=== PATIENT | female | born 1990 | race Caucasian/White ===

== ENCOUNTER 2017-05-31 15:05 | Emergency (ER) | payer SELFPAY ==
--- NOTE | 2017-05-31 16:05 | EDM.PDOC ---
ED HPI GENERAL MEDICAL PROBLEM - General Chief Complaint: Back Pain or Injury Stated Complaint: back pain Time Seen by Provider: 05/31/17 15:50 Source of Information: Reports: Patient History Limitations: Reports: No Limitations - History of Present Illness INITIAL COMMENTS - FREE TEXT/NARRATIVE: HISTORY AND PHYSICAL: History of present illness: [Comes to the emergency room complaining of mid to low back pain since she strained her back in February 2017. She has had ongoing pain since that time. She has followed with a provider in [place] a couple of times but overall has been dissatisfied with that care and presents to the emergency room for a second opinion. She was last seen in [place] yesterday. Requests an MRI to determine what is actually going on inside her back. She's had no worse pain and no change in the location of her pain. She has discomfort in her mid to low back with radiation into her left hip and down her left leg. Again this is not different than any of her previous symptoms. 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 Her pain started when she injured herself while lifting lifting while at work in February.] Review of systems: As per history of present illness and below otherwise all systems reviewed and negative. Past medical history: As per history of present illness and as reviewed below otherwise noncontributory. Surgical history: As per history of present illness and as reviewed below otherwise noncontributory. Social history: No reported history of drug or alcohol abuse. Family history: As per history of present illness and as reviewed below otherwise noncontributory. Physical exam: HEENT: Atraumatic, normocephalic. Extremities: Normal in appearance. No deficits appreciated w/ ambulation. Neuro: Awake, alert, oriented. Motor and sensory unremarkable throughout. Exam nonfocal. Impression: [back pain] Plan: [Discussed with the patient that emergent MRIs are not able to be completed through this emergency department and that her best bet is to establish care with a local PCP who can order an outpatient MRI at this facility. She is in agreement with today's plan and is given a referral to local PCP. She verbalized understanding of today's discussion and is in agreement with today's plan.] Definitive disposition and diagnosis as appropriate pending reevaluation and review of above. 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: Musculoskeletal History: Reports: None Neurological History: Reports: None Psychiatric History: Reports: Anxiety, Depression, PTSD, Other (See Below) Other Psychiatric History: borderline personality disorder Endocrine/Metabolic History: Reports: None Hematologic History: Reports: None Immunologic History: Reports: None Oncologic (Cancer) History: Reports: None Dermatologic History: Reports: None - Infectious Disease History Infectious Disease History: Reports: Chicken Pox, Shingles - Past Surgical History Head Surgeries/Procedures: Reports: None Musculoskeletal Surgical History: Reports: Other (See Below) Other Musculoskeletal Surgeries/Procedures:: tailbone fx Social & Family History - Family History Family Medical History: Noncontributory - Tobacco Use Smoking Status *Q: Current Every Day Smoker Years of Tobacco use: 5 Packs/Tins Daily: 1 - Caffeine Use Caffeine Use: Reports: Soda - Recreational Drug Use Recreational Drug Use: No ED ROS GENERAL - Review of Systems Review Of Systems: ROS reveals no pertinent complaints other than HPI. ED EXAM,LOWER BACK PAIN/INJURY - Physical Exam Exam: See Below Course - Vital Signs Last Recorded V/S: Last Vital Signs Temp 97.1 F 05/31/17 15:05 Pulse 123 H 05/31/17 15:05 Resp 18 05/31/17 15:05 BP 138/82 05/31/17 15:05 Pulse Ox 100 05/31/17 15:05 Departure - Departure Time of Disposition: 16:05 Disposition: Home, Self-Care 01 Condition: Good Clinical Impression: Low back pain - Discharge Information Referrals: PCP,None [Primary Care Provider] - Forms: ED Department Discharge Additional Instructions: The following information is given to patients seen in the emergency department who are being discharged to home. This information is to outline your options for follow-up care. We provide all patients seen in our emergency department with a follow-up referral. The need for follow-up, as well as the timing and circumstances, are variable depending upon the specifics of your emergency department visit. If you don't have a primary care physician on staff, we will provide you with a referral. We always advise you to contact your personal physician following an emergency department visit to inform them of the circumstance of the visit and for follow-up with them and/or the need for any referrals to a consulting specialist. The emergency department will also refer you to a specialist when appropriate. This referral assures that you have the opportunity for follow-up care with a specialist. All of these measure are taken in an effort to provide you with optimal care, which includes your follow-up. Under all circumstances we always encourage you to contact your private physician who remains a resource for coordinating your care. When calling for follow-up care, please make the office aware that this follow-up is from your recent emergency room visit. If for any reason you are refused follow-up, please contact the [facility] emergency department at and asked to speak to the emergency department charge nurse. [facility] [address] [place] [id number] Call the above listed phone number and get scheduled with a provider who can see you in the next couple of days. Some of the residents have same-day appointments and will provide you with excellent medical care. Return to ER as needed as discussed.
[2017-05-31 16:41] VITALS: BP 115/61
== END 2017-05-31 16:39 | disposition home or self-care (01) ==
LOC: MW.ED 15:05
DX: M54.5 Low back pain (principal); F17.210 Nicotine dependence, cigarettes, uncomplicated; Z88.5 Allergy status to narcotic agent
CPT/HCPCS: 99282

== ENCOUNTER 2017-08-18 16:30 | Emergency (ER) | payer SELFPAY ==
--- NOTE | 2017-08-18 16:49 | EDM.PDOC ---
ED HPI GENERAL MEDICAL PROBLEM - General Chief Complaint: ENT Problem Stated Complaint: TONSILS PAIN Time Seen by Provider: 08/18/17 16:30 Source of Information: Reports: Patient History Limitations: Reports: No Limitations - History of Present Illness INITIAL COMMENTS - FREE TEXT/NARRATIVE: HISTORY AND PHYSICAL: History of present illness: Patient is a 26-year-old female who presents to the emergency room with complaints of cough, sore throat and subjective fevers. She states she has had some intermittent nausea and diarrhea for the past 2 days as well. Denies any chest pain, shortness of breath, abdominal pain, vomiting. Has not had the flu shot this year. Review of systems: As per history of present illness and below otherwise all systems reviewed and negative. Past medical history: As per history of present illness and as reviewed below otherwise noncontributory. Surgical history: As per history of present illness and as reviewed below otherwise noncontributory. Social history: No reported history of drug or alcohol abuse. Family history: As per history of present illness and as reviewed below otherwise noncontributory. Physical exam: Gen.: Well-developed and well-nourished 26-year-old female. Alert and oriented. Nontoxic appearing and in no acute distress. HEENT: Atraumatic, normocephalic, pupils reactive, negative for conjunctival pallor or scleral icterus, mucous membranes moist, enlarged tonsils with no pillar shifting (mild errythema without exudate) otherwise throat clear, neck supple, nontender, trachea midline. No drooling or trismus. Lungs: Clear to auscultation, breath sounds equal bilaterally, chest nontender. Heart: S1S2, regular rate and rhythm Abdomen: Soft, nondistended, nontender. Negative for masses or hepatosplenomegaly. Negative for costovertebral tenderness. Pelvis: Stable nontender. Genitourinary: Deferred. Rectal: Deferred. Extremities: Atraumatic, negative for cords or calf pain. Neurovascular unremarkable. Neuro: Awake, alert, oriented. Cranial nerves II through XII unremarkable. Cerebellum unremarkable. Motor and sensory unremarkable throughout. Exam nonfocal. Initial strep screening is negative. Influenza is negative. Diagnostics: Influenza, strep, chest x-ray Therapeutics: [] Impression: Bronchitis Tonsilitis Plan: 1. Please take your antibiotic and Medrol Dosepak as prescribed. 2. Tylenol and/or ibuprofen as needed for pain and fever management. Please get an [id number] Cepocol or Throat Lozenges for discomfort relief. Encourage fluids to prevent dehydration. Rest. 3. Follow up with her primary caregiver in the next 1-2 days. Return to the ED as needed and as discussed. Definitive disposition and diagnosis as appropriate pending reevaluation and review of above. Duration: Day(s): Location: Reports: Head, Chest Throat Pain Score (Numeric/FACES): 8 - Related Data Allergies Allergy/AdvReac Type Severity Reaction Status Date / Time codeine Allergy Hives Verified 08/18/17 16:46 Home Meds: Home Meds Azithromycin 250 mg PO DAILY #6 tab 08/18/17 [Rx] methylPREDNISolone [Medrol] 4 mg PO DAILY #1 dospk 08/18/17 [Rx] Past Medical History - Past Health History Medical/Surgical History: Denies Medical/Surgical History HEENT History: Reports: None Cardiovascular History: Reports: None Respiratory History: Reports: Asthma Gastrointestinal History: Reports: None Genitourinary History: Reports: 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: Musculoskeletal History: Reports: None Neurological History: Reports: None Psychiatric History: Reports: Anxiety, Depression, PTSD, Other (See Below) Other Psychiatric History: borderline personality disorder Endocrine/Metabolic History: Reports: None Hematologic History: Reports: None Immunologic History: Reports: None Oncologic (Cancer) History: Reports: None Dermatologic History: Reports: None - Infectious Disease History Infectious Disease History: Reports: Chicken Pox, Shingles - Past Surgical History Head Surgeries/Procedures: Reports: None Musculoskeletal Surgical History: Reports: Other (See Below) Other Musculoskeletal Surgeries/Procedures:: tailbone fx Social & Family History - Family History Family Medical History: Noncontributory - Tobacco Use Smoking Status *Q: Current Every Day Smoker Years of Tobacco use: 5 Packs/Tins Daily: 1 - Caffeine Use Caffeine Use: Reports: Soda - Recreational Drug Use Recreational Drug Use: No ED ROS ENT - Review of Systems Review Of Systems: ROS reveals no pertinent complaints other than HPI. ED EXAM, ENT - Physical Exam Exam: See Below (See dictation) Course - Vital Signs Last Recorded V/S: Last Vital Signs Temp 98.9 F 08/18/17 16:47 Pulse 86 08/18/17 18:15 Resp 18 08/18/17 18:15 BP 116/75 08/18/17 18:15 Pulse Ox 96 08/18/17 18:15 Departure - Departure Time of Disposition: 18:08 Disposition: Home, Self-Care 01 Clinical Impression: Tonsillitis, Bronchitis - Discharge Information Prescriptions: Azithromycin 250 mg PO DAILY #6 tab methylPREDNISolone [Medrol] 4 mg PO DAILY #1 dospk Instructions: Tonsillitis, [id number], Acute Bronchitis, Adult, [id number] Referrals: Shlomo Flynn MD [Resident] - Forms: ED Department Discharge Additional Instructions: My general discharge The following information is given to patients seen in the emergency department who are being discharged to home. This information is to outline your options for follow-up care. We provide all patients seen in our emergency department with a follow-up referral. The need for follow-up, as well as the timing and circumstances, are variable depending upon the specifics of your emergency department visit. If you don't have a primary care physician on staff, we will provide you with a referral. We always advise you to contact your personal physician following an emergency department visit to inform them of the circumstance of the visit and for follow-up with them and/or the need for any referrals to a consulting specialist. The emergency department will also refer you to a specialist when appropriate. This referral assures that you have the opportunity for follow-up care with a specialist. All of these measure are taken in an effort to provide you with optimal care, which includes your follow-up. Under all circumstances we always encourage you to contact your private physician who remains a resource for coordinating your care. When calling for follow-up care, please make the office aware that this follow-up is from your recent emergency room visit. If for any reason you are refused follow-up, please contact the [facility] Emergency Department at and asked to speak to the emergency department charge nurse. [facility] [address] [place] [phone] 1. Please take your antibiotic and Medrol Dosepak as prescribed. 2. Tylenol and/or ibuprofen as needed for pain and fever management. Please get an [id number] Cepocol or Throat Lozenges for discomfort relief. Encourage fluids to prevent dehydration. Rest. 3. Follow up with her primary caregiver in the next 1-2 days. Return to the ED as needed and as discussed.
[2017-08-18 18:20] VITALS: BP 116/75
--- NOTE | 2017-08-19 10:14 | CR ---
EXAM DATE: 08/18/17 PATIENT'S AGE: 26 Patient: BASIM PARRY Facility: [place], [place] Site . Site : 1990 Study: XRay Chest [id number] 5:31:19 PM Ordering Physician: Doctor Wu Final Report: Indication: Pain, shortness of breath Technique: Two-view chest Comparison: None Findings: Normal cardiomediastinal silhouette. Clear lungs and pleural spaces. Osseous structures intact. Impression: Negative. Dictated by Jes Shields MD @ Aug 18 2017 6:13PM (Electronic Signature) Report Signed by Proxy. YAZMIN
== END 2017-08-18 18:15 | disposition home or self-care (01) ==
LOC: MW.ED 16:30
DX: J40 Bronchitis, not specified as acute or chronic (principal); J03.90 Acute tonsillitis, unspecified; F17.210 Nicotine dependence, cigarettes, uncomplicated; Z88.5 Allergy status to narcotic agent
CPT/HCPCS: 71046; 71046-26; 87081; 87804; 87880; 99283

== ENCOUNTER 2018-09-06 03:17 | Emergency (ER) | payer OTHER ==
[2018-09-06] MEDS ORDERED: Sodium Chloride 0.9% 2.5 ML Syringe FLUSH PRN (03:37)
[2018-09-06] MEDS ORDERED: Sodium Chloride 0.9% 10 ML Syringe FLUSH PRN (03:37)
--- NOTE | 2018-09-06 03:40 | EDM.PDOC ---
ED HPI GENERAL MEDICAL PROBLEM - General Chief Complaint: Syncope Stated Complaint: TROUBLE BREATHING Time Seen by Provider: 09/06/18 03:37 - History of Present Illness INITIAL COMMENTS - FREE TEXT/NARRATIVE: HISTORY AND PHYSICAL: History of present illness: Patient's 27-year-old white female history of anxiety presents status post syncopal episode she reportedly hit her head during this episode there was no nausea vomiting no fever no chills. Review of systems: As per history of present illness and below otherwise all systems reviewed and negative. Past medical history: As per history of present illness and as reviewed below otherwise noncontributory. Surgical history: As per history of present illness and as reviewed below otherwise noncontributory. Social history: No reported history of drug or alcohol abuse. Family history: As per history of present illness and as reviewed below otherwise noncontributory. Physical exam: HEENT: Minor abrasion noted the chin, normocephalic, pupils reactive, negative for conjunctival pallor or scleral icterus, mucous membranes moist, throat clear , neck supple, nontender, trachea midline. Lungs: Clear to auscultation, breath sounds equal bilaterally, chest nontender. Heart: S1S2, regular, negative for clicks, rubs, or JVD. Abdomen: Soft, nondistended, nontender. Negative for masses or hepatosplenomegaly. Negative for costovertebral tenderness. Pelvis: Stable nontender. Genitourinary: Deferred. Rectal: Deferred. Extremities: Atraumatic, negative for cords or calf pain. Neurovascular unremarkable. Neuro: Awake follows commands moves all extremities noted grossly nonfocal exam Diagnostics: CBC CMP troponin PT/INR chest x-ray CT brain Therapeutics: IV O2 monitor Impression: #1 syncope #2 history of anxiety Definitive disposition and diagnosis as appropriate pending reevaluation and review of above. headache Pain Score (Numeric/FACES): 8 - Related Data Allergies Allergy/AdvReac Type Severity Reaction Status Date / Time codeine Allergy Hives Verified 09/06/18 03:35 Home Meds: Home Meds . 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: Musculoskeletal History: Reports: None Neurological History: Reports: None Psychiatric History: Reports: Anxiety, Depression, PTSD, Other (See Below) Other Psychiatric History: borderline personality disorder Endocrine/Metabolic History: Reports: None Hematologic History: Reports: None Immunologic History: Reports: None Oncologic (Cancer) History: Reports: None Dermatologic History: Reports: None - Infectious Disease History Infectious Disease History: Reports: Chicken Pox, Shingles - Past Surgical History Head Surgeries/Procedures: Reports: None Musculoskeletal Surgical History: Reports: Other (See Below) Other Musculoskeletal Surgeries/Procedures:: tailbone fx Social & Family History - Family History Family Medical History: Noncontributory - Caffeine Use Caffeine Use: Reports: Soda ED ROS GENERAL - Review of Systems Review Of Systems: ROS reveals no pertinent complaints other than HPI. ED EXAM, GENERAL - Physical Exam Exam: See Below (See dictation) Course - Vital Signs Last Recorded V/S: Last Vital Signs Temp 36.7 C 09/06/18 05:03 Pulse 81 09/06/18 05:03 Resp 20 09/06/18 05:03 BP 110/64 09/06/18 05:03 Pulse Ox 93 L 09/06/18 05:03 - Orders/Labs/Meds Orders: Active Orders 24 hr Category Date Time Status Cardiac Monitoring [RC] . DIRECTED Care 09/06/18 03:37 Active EKG 12 Lead [EKG Documentation Completion] [RC] STAT Care 09/06/18 03:29 Active Saline Lock Insert [OM.PC] Stat Oth 09/06/18 03:37 Ordered Labs: Laboratory Tests 09/06/18 09/06/18 09/06/18 Range/Units 03:45 03:45 03:45 WBC 10.34 (4.0-11.0) K/uL RBC 4.56 (4.30-5.90) M/uL Hgb 14.1 (12.0-16.0) g/dL Hct 39.6 (36.0-46.0) % MCV 86.8 (80.0-98.0) fL MCH 30.9 (27.0-32.0) pg MCHC 35.6 (31.0-37.0) g/dL RDW Std Deviation 39.2 (28.0-62.0) fl RDW Coeff of Delfino 12 (11.0-15.0) % Plt Count 259 (150-400) K/uL MPV 9.40 (7.40-12.00) fL Neut % (Auto) 75.4 (48.0-80.0) % Lymph % (Auto) 16.1 (16.0-40.0) % Hancock % (Auto) 7.7 (0.0-15.0) % Eos % (Auto) 0.5 (0.0-7.0) % Baso % (Auto) 0.3 (0.0-1.5) % Neut # (Auto) 7.8 H (1.4-5.7) K/uL Lymph # (Auto) 1.7 (0.6-2.4) K/uL Hancock # (Auto) 0.8 (0.0-0.8) K/uL Eos # (Auto) 0.1 (0.0-0.7) K/uL Baso # (Auto) 0.0 (0.0-0.1) K/uL Nucleated RBC % 0.0 /100WBC Nucleated RBCs # 0 K/uL INR 1.05 Sodium 141 (136-145) mmol/L Potassium 3.7 (3.5-5.1) mmol/L Chloride 105 (98-107) mmol/L Carbon Dioxide 23.5 (21.0-32.0) mmol/L BUN 9 (7.0-18.0) mg/dL Creatinine 0.8 (0.6-1.0) mg/dL Est Cr Clr Drug Dosing TNP Estimated GFR (MDRD) > 60.0 ml/min Glucose 120 H (74-106) mg/dL Calcium 8.6 (8.5-10.1) mg/dL Total Bilirubin 0.8 (0.2-1.0) mg/dL AST 12 L (15-37) IU/L ALT 23 (14-63) IU/L Alkaline Phosphatase 63 (46-116) U/L Troponin I < 0.050 (0.000-0.056) ng/mL Total Protein 7.6 (6.4-8.2) g/dL Albumin 4.0 (3.4-5.0) g/dL Globulin 3.6 (2.6-4.0) g/dL Albumin/Globulin Ratio 1.1 (0.9-1.6) Meds: Medications Discontinued Medications Generic Name Dose Route Start Last Admin Trade Name Manju PRN Reason Stop Dose Admin Sodium Chloride 10 ml 09/06/18 03:37 Saline Flush FLUSH ASDIRECTED PRN Keep Vein Open Sodium Chloride 2.5 ml 09/06/18 03:37 Saline Flush FLUSH ASDIRECTED PRN Keep Vein Open Departure - Departure Time of Disposition: 05:57 Disposition: Home, Self-Care 01 Condition: Good Clinical Impression: Syncope, Anxiety - Discharge Information Instructions: Syncope, [id number] Referrals: PCP,None [Primary Care Provider] - Forms: ED Department Discharge Additional Instructions: The following information is given to patients seen in the emergency department who are being discharged to home. This information is to outline your options for follow-up care. We provide all patients seen in our emergency department with a follow-up referral. The need for follow-up, as well as the timing and circumstances, are variable depending upon the specifics of your emergency department visit. If you don't have a primary care physician on staff, we will provide you with a referral. We always advise you to contact your personal physician following an emergency department visit to inform them of the circumstance of the visit and for follow-up with them and/or the need for any referrals to a consulting specialist. The emergency department will also refer you to a specialist when appropriate. This referral assures that you have the opportunity for followup care with a specialist. All of these measure are taken in an effort to provide you with optimal care, which includes your followup. Under all circumstances we always encourage you to contact your private physician who remains a resource for coordinating your care. When calling for followup care, please make the office aware that this follow-up is from your recent emergency room visit. If for any reason you are refused follow-up, please contact the [facility] emergency department at and asked to speak to the emergency department charge nurse. Follow-up primary medical doctor as needed as discussed return as needed as discussed - My Orders Last 24 Hours: My Active Orders 09/06/18 03:29 EKG 12 Lead [EKG Documentation Completion] [RC] STAT 09/06/18 03:37 Cardiac Monitoring [RC] . DIRECTED Saline Lock Insert [OM.PC] Stat - Assessment/Plan Last 24 Hours: My Active Orders 09/06/18 03:29 EKG 12 Lead [EKG Documentation Completion] [RC] STAT 09/06/18 03:37 Cardiac Monitoring [RC] . DIRECTED Saline Lock Insert [OM.PC] Stat
--- NOTE | 2018-09-06 04:08 | CR ---
INDICATION: Chest pain TECHNIQUE: Chest radiograph 1 view COMPARISON: None FINDINGS: Mediastinum: The mediastinum is normal in appearance. The heart silhouette is normal in size and morphology. Lung: Both lungs are unremarkable in appearance. No sign of pleural effusion seen. No pneumothorax is identified. Musculoskeletal: Unremarkable for age. IMPRESSION: 1. No acute cardiopulmonary disease is seen. Dictated by: Juan José Frank MD @ 09/06/2018 04:07:09 (Electronically Signed)
[2018-09-06 04:18] LABS: CHLORIDE,CL 105 mmol/L (98-107); SODIUM,NA 141 mmol/L (136-145)
--- NOTE | 2018-09-06 04:21 | CT ---
INDICATION: Syncope TECHNIQUE: CT Head without i.v. contrast. COMPARISON: None FINDINGS: CSF space: The ventricles are normal for age. Brain: No evidence of mass, acute infarction or hemorrhage is seen. No mass-effect or midline shift is seen. The brain parenchyma is otherwise normal in appearance with preservation of the mcfadden-white matter junction. Calvarium: The visualized paranasal sinuses are well aerated. The mastoid air cells are clear. The visualized orbits are grossly unremarkable. The calvarium is unremarkable in appearance with no fractures identified. IMPRESSION: 1. No evidence of acute infarction, intracranial hemorrhage, or mass-effect seen. Please note that all CT scans at this facility use dose modulation, iterative reconstruction, and/or weight-based dosing when appropriate to reduce radiation dose to as low as reasonably achievable. Dictated by: Juan José Frank MD @ 09/06/2018 04:19:48 (Electronically Signed)
[2018-09-06 05:38] VITALS: BP 110/64
== END 2018-09-06 05:22 | disposition home or self-care (01) ==
LOC: MW.ED 03:17
DX: R55 Syncope and collapse (principal); F41.9 Anxiety disorder, unspecified; Z88.5 Allergy status to narcotic agent
CPT/HCPCS: 36415; 70450; 70450-26; 71045; 71045-26; 80053; 84484; 85025; 85610; 93005; 99284; 99284-25

== ENCOUNTER 2021-01-29 18:32 | Emergency (ER) | payer OTHER ==
[2021-01-29] MEDS ORDERED: Sodium Chloride 0.9% 1,000 ML IV ONE (19:31)
[2021-01-29] MEDS ORDERED: Ondansetron 4 MG/2 ML SDV IVPUSH ONE ×2 (19:31→21:41)
[2021-01-29] MEDS ORDERED: HYDROmorphone 1 MG/ML Syringe IVPUSH ONE ×2 (19:31→21:41)
[2021-01-29 20:18] LABS: BLOOD UREA NITROGEN,BUN 9 mg/dL (7.0-18.0); CARBON DIOXIDE,CO2 27.3 mmol/L (21.0-32.0); CHLORIDE,CL 103 mmol/L (98-107); GLUCOSE RANDOM 97 mg/dL (74-106); LIPASE 66 U/L (73-393); POTASSIUM,K 3.5 mmol/L (3.5-5.1); SODIUM,NA 140 mmol/L (136-145)
[2021-01-29] MEDS ORDERED: Calcium Gluconate 10% 1 GM/10 ML SDV IVPUSH ONE (20:48)
--- NOTE | 2021-01-29 21:24 | US ---
INDICATION: Right upper quadrant abdominal pain TECHNIQUE: Ultrasound abdomen limited. Sonographic images of the right upper quadrant were obtained using mcfadden-scale and color Doppler images. COMPARISON: None FINDINGS: Liver: The liver parenchyma is normal in echotexture. Gallbladder: No gallstones or sludge seen in the lumen. The gallbladder wall is normal in appearance. No pericholecystic fluid is present. No sonographic Allen[place] sign is present. Common bile duct: 2 mm. No intrahepatic biliary ductal dilatation seen. Pancreas: The visualized portions of the pancreatic head and body are normal in appearance. Right Kidney: 10.2 cm. No hydronephrosis or ureterectasis is seen. Vascular: The visualized abdominal aorta and IVC are unremarkable. IMPRESSION: 1. The right upper quadrant is unremarkable in appearance. Dictated by Juan José Frank MD @ 01/29/2021 9:22:18 PM Dictated by: Juan José Frank MD @ 01/29/2021 21:22:47 (Electronically Signed)
--- NOTE | 2021-01-29 21:30 | US ---
PELVIC ULTRASOUND, 01/29/2021 HISTORY: Right lower quadrant abdominal pain. COMPARISON: None. FINDINGS: The uterus measures 7.5 x 3.5 x 3.2 cm. No evidence for uterine mass. The endometrium is homogeneous measuring 3 mm in thickness. The right ovary measures 3.5 x 3.3 x 1.7 cm. The left ovary measures 2.3 x 1.4 x 2.6 cm. Normal Doppler blood flow to both ovaries. Normal ovarian follicles. No evidence for ovarian or adnexal mass. No free pelvic fluid. IMPRESSION: Normal pelvic ultrasound. Kathryn Rain M.D. Breast/Body Radiologist [facility] Transcribed: 9:24 p.m. [email or web address] jj/Dictated by: Kathryn Rain MD @ 01/29/2021 9:20:00 PM (Electronically Signed)
--- NOTE | 2021-01-29 22:25 | EDM.PDOC ---
ED HPI GENERAL MEDICAL PROBLEM - General Chief Complaint: ARMED SECURITY GUARD Problem Stated Complaint: REF FROM [facility] FOR US Time Seen by Provider: 01/29/21 18:44 Source of Information: Reports: Patient History Limitations: Reports: No Limitations - History of Present Illness INITIAL COMMENTS - FREE TEXT/NARRATIVE: HISTORY AND PHYSICAL: History of present illness: Patient is a 30-year-old female presents emergency room today as she was sent from [facility] to receive ultrasound for possible "ovarian torsion ". Patient states that she started developing right-sided abdominal pain today and went to [facility]'s emergency room. Patient states that she had lab work and a CT scan done there and was told everything was normal and was instructed to come to [place] in order to get an ultrasound to rule out possible ovarian torsion. Patient states that she did have a similar episode to this approximately 1 year ago which resolved and was unknown as to what the s ource was. Patient states that today, her pain is worse than it was a year ago but states that the pain does have a similar "feeling ". Patient denies any health history or any other symptoms or concerns. Patient denies fever, chills, chest pain, shortness of breath, or cough. Denies headache, neck stiff ness, change in vision, syncope, or near syncope. Denies diarrhea, constipation, or dysuria. Has not noted any blood in urine or stool. Review of systems: As per history of present illness and below otherwise all systems reviewed and negative. Past medical history: As per history of present illness and as reviewed below otherwise noncontributory. Surgical history: As per history of present illness and as reviewed below otherwise noncontributory. Social history: See social history for further information Family history: As per history of present illness and as reviewed below otherwise noncontributory. Physical exam: General: Patient is alert, oriented, and in no acute distress. Patient sitting comfortably on exam table. Vitals stable and reviewed by me. HEENT: Atraumatic, normocephalic, pupils equal and reactive bilaterally, negative for conjunctival pallor or scleral icterus, mucous membranes moist, TMs normal bilaterally, throat clear, neck supple, nontender, trachea midline. No drooling or trismus noted. No meningeal signs. No hot potato voice noted. Lungs: Clear to auscultation, breath sounds equal bilaterally, chest nontender. Heart: S1S2, regular rate and rhythm without overt murmur Abdomen: Soft, nondistended, patient does have significant right-sided abdominal pain, worse in the upper abdomen than lower abdomen with guarding, negative rebound, negative Baum. Negative for masses or hepatosplenomegaly. Negative for costovertebral tenderness. Pelvis: Stable nontender. Genitourinary: Stockroom Associate at bedside Zahida Burkett RN. External genitalia grossly unremarkable. There is a small amount of white vaginal discharge in the vaginal vault. Negative cervical motion tenderness. Uterus is nontender. No adnexal tenderness or masses. Rectal: Deferred. Skin: Intact, warm, dry. No lesions or rashes noted. Extremities: Atraumatic, negative for cords or calf pain. Neurovascular unremarkable. Neuro: Awake, alert, oriented. Cranial nerves II through XII unremarkable. Cerebellum unremarkable. Motor and sensory unremarkable throughout. Exam nonfoca l. Notes: Patient is a 30-year-old female who presents emergency room today from [facility] as they recommended ultrasound to rule out possible ovarian torsion. Patient presents emergency room today secondary to right-sided abdominal pain. Upon arrival to the ED, patient is vitally stable but does have significant tenderness to the right sided abdomen on exam. Patient does have lab work and an abdominal pelvic CT scan from [facility] with lab work/CD of CT scan, and interpretation of CT scan faxed over from [facility]. Upon review of patient's lab work and CT scan performed at [facility]. CT scan was performed today 01/29/2021 at [address] scan without contrast shows there are no acute abnormalities within the visualized abdomen or pelvis. The appendix is seen and is normal. Lab work done at [facility] shows an unremarkable CBC, mild elevated bili in isolation at 1.35 otherwise unremarkable CMP, negative Covid, clear urinalysis. [facility] was concerned about possible ovarian torsion. On exam, patient does have significant right sided tenderness. Will repeat lab work to compare to labs done earlier today as well as obtain ultrasound of the right upper quadrant and transvaginal ultrasound/rule out ovarian torsion. Patient has received a full dose of Toradol while at [facility]. Will give patient Dilaudid, fluids, Zofran, and reassess patient. CBC mild derangements today are unremarkable. CMP shows a corrected calcium is decreased at 7.4. Will replete calcium today in the emergency room. Total bilirubin is mildly elevated in isolation at 1.3 with normal AST, ALT, and alk phos. hCG is negative. Lipase is within normal limits. Transvaginal ultrasound shows normal pelvic ultrasound with normal ovarian flow to both ovaries. Right upper quadrant ultrasound is unremarkable in appearance. There are no gallstones or sludge seen in the gallbladder. The gallbladder wall is normal. No pericholecystic fluid present. Common bile duct within normal limits at 2 mm with no intrahepatic biliary ductal dilation. Upon reevaluation of patient, she remains vitally stable and has improvement of her abdominal pain with medication/therapeutics today in the emergency room. Patient does have 1 episode of vomiting while awaiting diagnostic completion but does not continue to actively vomit. Although patient's pain is improved, she still has significant abdominal pain. I did offer patient admission for intractable abdominal pain, however, she declines at this time. All risks versus benefits discussed with patient and expresses understanding. Strict return precautions thoroughly discussed with patient. Discussed importance for follow-up with a primary care provider. Voices understanding and is agreeable to plan of care. Denies any further questions or concerns at this time. Diagnostics: CBC, CMP, hCG, lipase, right upper quadrant ultrasound, transvaginal ultrasound Therapeutics: Calcium, Dilaudid, Zofran, normal saline (Patient did receive full dose Toradol in [place] prior to arrival to ED) Prescription: Comfort 5/325 (10 tabs), Zofran Impression: Abdominal pain, unspecified Plan: 1. Take medication as prescribed. Encourage small but frequent sips of fluid to prevent dehydration. 2. You can also alternate ibuprofen and Tylenol as directed for pain and discomfort. Caution when taking Comfort as this medication causes drowsiness and sedation. Do not take this medication and operate any heavy equipment or drive any vehicles. Caution taking this medication outside of the home. 3. Follow-up with your primary care provider as discussed. Return to the ED as needed and as discussed. Definitive disposition and diagnosis as appropriate pending reevaluation and review of above. RLQ Pain Score (Numeric/FACES): 7 - Related Data Allergies Allergy/AdvReac Type Severity Reaction Status Date / Time codeine Allergy Hives Verified 01/29/21 19:06 Home Meds: Home Meds . [No Known Home Meds] 09/06/18 [History] Past Medical History - Past Health History Medical/Surgical History: Denies Medical/Surgical History HEENT History: Reports: None Cardiovascular History: Reports: None Respiratory History: Reports: Asthma Gastrointestinal History: Reports: None Genitourinary History: Reports: None ARMED SECURITY GUARD History: Reports: Musculoskeletal History: Reports: None Neurological History: Reports: None Psychiatric History: Reports: Anxiety, Depression, PTSD, Other (See Below) Other Psychiatric History: borderline personality disorder Endocrine/Metabolic History: Reports: None Hematologic History: Reports: None Immunologic History: Reports: None Oncologic (Cancer) History: Reports: None Dermatologic History: Reports: None - Infectious Disease History Infectious Disease History: Reports: Chicken Pox, Shingles - Past Surgical History Head Surgeries/Procedures: Reports: None Musculoskeletal Surgical History: Reports: Other (See Below) Other Musculoskeletal Surgeries/Procedures:: tailbone fx Social & Family History - Family History Family Medical History: No Pertinent Family History - Tobacco Use Tobacco Use Status *Q: Current Every Day Tobacco User Years of Tobacco use: 17 Packs/Tins Daily: 0.5 - Caffeine Use Caffeine Use: Reports: Soda - Recreational Drug Use Recreational Drug Use: Yes Recreational Drug Type: Reports: Marijuana/Hashish ED ROS GENERAL - Review of Systems Review Of Systems: Comprehensive ROS is negative, except as noted in HPI. ED EXAM, GENERAL - Physical Exam Exam: See Below (see dictation) Course - Vital Signs Last Recorded V/S: Last Vital Signs Temp 97.1 F 01/29/21 22:45 Pulse 98 01/29/21 22:45 Resp 20 01/29/21 22:45 BP 116/70 01/29/21 22:45 Pulse Ox 100 01/29/21 22:45 - Orders/Labs/Meds Labs: Laboratory Tests 01/29/21 01/29/21 01/29/21 Range/Units 19:42 19:42 19:42 WBC 6.36 (4.0-11.0) K/uL RBC 4.62 (4.30-5.90) M/uL Hgb 14.5 (12.0-16.0) g/dL Hct 40.5 (36.0-46.0) % MCV 87.7 (80.0-98.0) fL MCH 31.4 (27.0-32.0) pg MCHC 35.8 (31.0-37.0) g/dL RDW Std Deviation 40.1 (28.0-62.0) fl RDW Coeff of Delfino 12 (11.0-15.0) % Plt Count 278 (150-400) K/uL MPV 9.30 (7.40-12.00) fL Neut % (Auto) 48.8 (48.0-80.0) % Lymph % (Auto) 41.0 H (16.0-40.0) % [place] % (Auto) 7.9 (0.0-15.0) % Eos % (Auto) 1.7 (0.0-7.0) % Baso % (Auto) 0.6 (0.0-1.5) % Neut # (Auto) 3.1 (1.4-5.7) K/uL Lymph # (Auto) 2.6 H (0.6-2.4) K/uL [place] # (Auto) 0.5 (0.0-0.8) K/uL Eos # (Auto) 0.1 (0.0-0.7) K/uL Baso # (Auto) 0.0 (0.0-0.1) K/uL Nucleated RBC % 0.0 /100WBC Nucleated RBCs # 0 K/uL Sodium 140 (136-145) mmol/L Potassium 3.5 (3.5-5.1) mmol/L Chloride 103 (98-107) mmol/L Carbon Dioxide 27.3 (21.0-32.0) mmol/L BUN 9 (7.0-18.0) mg/dL Creatinine 0.8 (0.6-1.0) mg/dL Est Cr Clr Drug Dosing 81.33 mL/min Estimated GFR (MDRD) > 60.0 ml/min Glucose 97 (74-106) mg/dL Calcium 8.0 L (8.5-10.1) mg/dL Total Bilirubin 1.3 H (0.2-1.0) mg/dL AST 14 L (15-37) IU/L ALT 23 (14-63) IU/L Alkaline Phosphatase 68 (46-116) U/L Total Protein 7.7 (6.4-8.2) g/dL Albumin 4.2 (3.4-5.0) g/dL Globulin 3.5 (2.6-4.0) g/dL Albumin/Globulin Ratio 1.2 (0.9-1.6) Lipase 66 L (73-393) U/L HCG, Qual NEGATIVE (NEG) Meds: Medications Discontinued Medications Generic Name Dose Route Start Last Admin Trade Name Bulmaroq PRN Reason Stop Dose Admin Calcium Gluconate 1 gm 01/29/21 20:48 01/29/21 21:17 Calcium Gluconate 10% 1 Gm/10 Ml Sdv IVPUSH 01/29/21 20:49 1 gm ONETIME ONE Administration Hydromorphone HCl 1 mg 01/29/21 19:31 01/29/21 19:53 Hydromorphone 1 Mg/Ml Syringe IVPUSH 01/29/21 19:32 1 mg ONETIME ONE Administration Hydromorphone HCl 1 mg 01/29/21 21:41 01/29/21 21:50 Hydromorphone 1 Mg/Ml Syringe IVPUSH 01/29/21 21:42 1 mg ONETIME ONE Administration Sodium Chloride 1,000 mls @ 999 mls/hr 01/29/21 19:31 01/29/21 19:52 Normal Saline IV 01/29/21 20:31 999 mls/hr BOLUS ONE Administration Ondansetron HCl 4 mg 01/29/21 19:31 01/29/21 19:52 Ondansetron 4 Mg/2 Ml Sdv IVPUSH 01/29/21 19:32 4 mg ONETIME ONE Administration Ondansetron HCl 4 mg 01/29/21 21:41 01/29/21 21:50 Ondansetron 4 Mg/2 Ml Sdv IVPUSH 01/29/21 21:42 4 mg ONETIME ONE Administration Departure - Departure Time of Disposition: 22:24 Disposition: Home, Self-Care 01 Clinical Impression: Abdominal pain Qualifiers: Abdominal location: right upper quadrant Qualified Code(s): R10.11 - Right upper quadrant pain - Discharge Information Instructions: Abdominal Pain, Adult, [id number] Referrals: PCP,None [Primary Care Provider] - Forms: ED Department Discharge Additional Instructions: The following information is given to patients seen in the emergency department who are being discharged to home. This information is to outline your options for follow-up care. We provide all patients seen in our emergency department with a follow-up referral. The need for follow-up, as well as the timing and circumstances, are variable depending upon the specifics of your emergency department visit. If you don't have a primary care physician on staff, we will provide you with a referral. We always advise you to contact your personal physician following an emergency department visit to inform them of the circumstance of the visit and for follow-up with them and/or the need for any referrals to a consulting specialist. The emergency department will also refer you to a specialist when appropriate. This referral assures that you have the opportunity for follow-up care with a specialist. All of these measure are taken in an effort to provide you with optimal care, which includes your follow-up. Under all circumstances we always encourage you to contact your private physician who remains a resource for coordinating your care. When calling for follow-up care, please make the office aware that this follow-up is from your recent emergency room visit. If for any reason you are refused follow-up, please contact the [facility] Emergency Department at and asked to speak to the emergency department charge nurse. [facility] Primary Care [address] [place] [id number] [facility] [address] [place] [id number] 1. Take medication as prescribed. Encourage small but frequent sips of fluid to prevent dehydration. 2. You can also alternate ibuprofen and Tylenol as directed for pain and discomfort. Caution when taking Comfort as this medication causes drowsiness and sedation. Do not take this medication and operate any heavy equipment or drive any vehicles. Caution taking this medication outside of the home. 3. Follow-up with your primary care provider as discussed. Return to the ED as needed and as discussed.
[2021-01-30 02:00] VITALS: BP 116/70; PULSE 98
== END 2021-01-29 22:45 | disposition home or self-care (01) ==
LOC: MW.ED 18:32
DX: R10.11 Right upper quadrant pain (principal); Z88.5 Allergy status to narcotic agent; Z72.0 Tobacco use
CPT/HCPCS: 36415; 76705; 76830; 80053; 83690; 84703; 85025; 96374; 96375; 96376; 99284; J0610; J1170; J2405; J7030

== ENCOUNTER 2021-02-05 17:46 | Emergency (ER) | payer SELFPAY ==
[2021-02-05] MEDS ORDERED: Sodium Chloride 0.9% 1,000 ML IV ONE (20:22)
[2021-02-05] MEDS ORDERED: Sodium Chloride 0.9% 10 ML Syringe FLUSH PRN (20:22)
[2021-02-05] MEDS ORDERED: fentaNYL 50 MCG/ML SDV IVPUSH ONE ×2 (20:22→21:35)
[2021-02-05] MEDS ORDERED: Ondansetron 4 MG/2 ML SDV IVPUSH ONE (20:22)
[2021-02-05] MEDS ORDERED: Ketorolac 30 MG/ML SDV IVPUSH ONE (20:22)
[2021-02-05] MEDS ORDERED: Sodium Chloride 0.9% 2.5 ML Syringe FLUSH PRN (20:22)
[2021-02-05 21:03] LABS: BLOOD UREA NITROGEN,BUN 11 mg/dL (7.0-18.0); CARBON DIOXIDE,CO2 29.7 mmol/L (21.0-32.0); CHLORIDE,CL 103 mmol/L (98-107); GLUCOSE RANDOM 88 mg/dL (74-106); LIPASE 88 U/L (73-393); SODIUM,NA 140 mmol/L (136-145)
[2021-02-05] MEDS ORDERED: Dicyclomine 10 MG Cap PO ONE (21:35)
--- NOTE | 2021-02-05 21:48 | EDM.PDOC ---
ED HPI GENERAL MEDICAL PROBLEM - General Chief Complaint: Abdominal Pain Stated Complaint: ABDOMINAL PAIN Time Seen by Provider: 02/05/21 20:10 - History of Present Illness INITIAL COMMENTS - FREE TEXT/NARRATIVE: HISTORY AND PHYSICAL: History of present illness: This is a 30-year-old female who presents ER today complaining of recurrence of her right upper quadrant abdominal pain. Patient appears to had a full work-up through her primary care physician in the ED within the last couple weeks. Patient had a normal CT scan of her abdomen pelvis, normal ultrasound of her pelvis, normal ultrasound of her gallbladder. Patient reports that she called her doctor earlier today secondary to recurrence of her pain and she was prescribed ketorolac and [place]. She reports that she got her prescription filled but has not taken any of the medicines yet because her pain has been persistent and getting worse. Patient denies any recent fevers, shakes, chills, vomiting, diarrhea, dysuria, frequency, urgency. Patient reports that she had decreased dietary intake of fatty foods secondary to dietary restrictions from her pain. Patient reports that that initially helped but now she is having recurrence of the pain despite no change in her diet. Patient denies any melena or bright red blood per rectum. Patient has a vaginal discharge. Patient reports that she is monogamous with a female partner and no chance for pregnanc y. Patient denies any URI symptoms. Patient denies any jaundice or change in color. Review of systems: As per history of present illness and below otherwise all systems reviewed and negative. Past medical history: As per history of present illness and as reviewed below otherwise noncontributory. Surgical history: As per history of present illness and as reviewed below otherwise noncontribu tory. Social history: No reported history of drug abuse. Family history: As per history of present illness and as reviewed below otherwise noncontributory. Physical exam: This patient was seen and evaluated during the 2019 SARS-CoV-2 novel coronavirus pandemic period. Community viral transmission is ongoing at time of this encounter and the emergency department is operating under pandemic response procedures. Constitutional: Patient is oriented to person, place, and time. Appears well- developed and well-nourished. No distress. HEENT: Moist mucous membranes Head: Normocephalic and atraumatic Eyes: Right eye exhibits no discharge. Left eye exhibits no discharge. No scleral icterus Neck: Normal range of motion. No tracheal deviation present. Cardiovascular: Normal rate and regular rhythm. Pulmonary: Effort normal, no respiratory distress. Abd: Soft, nondistended, no rebound/guarding, no psoas or obturator signs, no tenderness at Mcberney's point, no Baum's sign. Pt does not present with an exam that would be consistent with an acute surgical abdomen at this time. Positive tenderness to palpation to her right upper quadrant with radiation to her back on palpation of her right upper quadrant. No jaundice. No Ronnie or Berger Becerril sign. Musculoskeletal: Normal range of motion Neurologic: Alert and oriented to person, place and time. Skin: [place], warm and dry. Psychiatric: Normal mood and affect. Behavior is normal. Judgment and thought content normal. Nursing note and vital signs have been reviewed Assessment and plan: This is a 30-year-old female who presents ER today with classic signs of gallbladder pain. Patient's ultrasound has been negative so I suspect she has biliary dyskinesis. She has been told by her doctor that she might need a HIDA scan. I agree with her doctor's assessment that this pain is most likely secondary to gallbladder disease and that she would benefit from surgical consultation and possible HIDA scan as an outpatient. Patient's labs are all within normal limits with a normal white count and normal LFTs and lipase. Patient was given fentanyl 50 mics IV x2 along with Toradol and Bentyl. Patient was discharged home with a prescription for Bentyl to take for anticholinergic effect of her gallbladder and to continue the pain medicines as prescribed by her primary care physician. Reassessment at the time of disposition demonstrates that the patient is in no acute distress. The patient has remained stable throughout the entire ED visit and is without objective evidence for acute process requiring urgent intervention or hospitalization. The patient is stable for discharge, counseling is provided as documented above, discussed symptomatic treatment and specific conditions for return. I have spoken with the patient/caregiver and discussed todays findings, in addition to providing specific details for the plan of care. Questions are answered and there is agreement with the plan. Definitive disposition and diagnosis as appropriate pending reevaluation and review of above. RUQ Pain Score (Numeric/FACES): 8 - Related Data Allergies Allergy/AdvReac Type Severity Reaction Status Date / Time codeine Allergy Hives Verified 02/05/21 17:55 Home Meds: Home Meds . [No Known Home Meds] 09/06/18 [History] Past Medical History - Past Health History Medical/Surgical History: Denies Medical/Surgical History HEENT History: Reports: None Cardiovascular History: Reports: None Respiratory History: Reports: Asthma Gastrointestinal History: Reports: None Genitourinary History: Reports: None DRAFTER DIRECTIONAL SURVEY History: Reports: Musculoskeletal History: Reports: None Neurological History: Reports: None Psychiatric History: Reports: Anxiety, Depression, PTSD, Other (See Below) Other Psychiatric History: borderline personality disorder Endocrine/Metabolic History: Reports: None Hematologic History: Reports: None Immunologic History: Reports: None Oncologic (Cancer) History: Reports: None Dermatologic History: Reports: None - Infectious Disease History Infectious Disease History: Reports: Chicken Pox, Shingles - Past Surgical History Head Surgeries/Procedures: Reports: None Musculoskeletal Surgical History: Reports: Other (See Below) Other Musculoskeletal Surgeries/Procedures:: tailbone fx Social & Family History - Family History Family Medical History: No Pertinent Family History - Tobacco Use Tobacco Use Status *Q: Current Every Day Tobacco User Years of Tobacco use: 17 Packs/Tins Daily: 0.5 - Caffeine Use Caffeine Use: Reports: Soda - Recreational Drug Use Recreational Drug Use: Yes Recreational Drug Type: Reports: Marijuana/Hashish Recreational Drug Use Frequency: Socially ED ROS GENERAL - Review of Systems Review Of Systems: See Below ED EXAM, GENERAL - Physical Exam Exam: See Below Course - Vital Signs Last Recorded V/S: Last Vital Signs Temp 95.9 F L 02/05/21 17:54 Pulse 73 02/05/21 17:54 Resp 18 02/05/21 17:54 BP 135/77 02/05/21 17:54 Pulse Ox 98 02/05/21 17:54 - Orders/Labs/Meds Orders: Active Orders 24 hr Category Date Time Status Sodium Chloride 0.9% [Saline Flush] Med 02/05/21 20:22 Active 10 ml FLUSH ASDIRECTED PRN Sodium Chloride 0.9% [Saline Flush] Med 02/05/21 20:22 Active 2.5 ml FLUSH ASDIRECTED PRN Saline Lock Insert [OM.PC] Stat Oth 02/05/21 20:24 Ordered Medication Orders Sodium Chloride (Sodium Chloride 0.9% 10 Ml Syringe) 10 ml FLUSH ASDIRECTED PRN PRN Reason: Keep Vein Open Sodium Chloride (Sodium Chloride 0.9% 2.5 Ml Syringe) 2.5 ml FLUSH ASDIRECTED PRN PRN Reason: Keep Vein Open Labs: Laboratory Tests 02/05/21 02/05/21 Range/Units 20:40 20:40 WBC 5.89 (4.0-11.0) K/uL RBC 4.47 (4.30-5.90) M/uL Hgb 14.1 (12.0-16.0) g/dL Hct 39.4 (36.0-46.0) % MCV 88.1 (80.0-98.0) fL MCH 31.5 (27.0-32.0) pg MCHC 35.8 (31.0-37.0) g/dL RDW Std Deviation 40.0 (28.0-62.0) fl RDW Coeff of Delfino 13 (11.0-15.0) % Plt Count 290 (150-400) K/uL MPV 9.90 (7.40-12.00) fL Neut % (Auto) 47.5 L (48.0-80.0) % Lymph % (Auto) 39.7 (16.0-40.0) % [place] % (Auto) 10.0 (0.0-15.0) % Eos % (Auto) 2.0 (0.0-7.0) % Baso % (Auto) 0.8 (0.0-1.5) % Neut # (Auto) 2.8 (1.4-5.7) K/uL Lymph # (Auto) 2.3 (0.6-2.4) K/uL [place] # (Auto) 0.6 (0.0-0.8) K/uL Eos # (Auto) 0.1 (0.0-0.7) K/uL Baso # (Auto) 0.1 (0.0-0.1) K/uL Nucleated RBC % 0.0 /100WBC Nucleated RBCs # 0 K/uL Sodium 140 (136-145) mmol/L Potassium 4.0 (3.5-5.1) mmol/L Chloride 103 (98-107) mmol/L Carbon Dioxide 29.7 (21.0-32.0) mmol/L BUN 11 (7.0-18.0) mg/dL Creatinine 0.9 (0.6-1.0) mg/dL Est Cr Clr Drug Dosing 72.29 mL/min Estimated GFR (MDRD) > 60.0 ml/min Glucose 88 (74-106) mg/dL Calcium 8.6 (8.5-10.1) mg/dL Total Bilirubin 0.9 (0.2-1.0) mg/dL AST 16 (15-37) IU/L ALT 23 (14-63) IU/L Alkaline Phosphatase 66 (46-116) U/L Total Protein 7.4 (6.4-8.2) g/dL Albumin 4.0 (3.4-5.0) g/dL Globulin 3.4 (2.6-4.0) g/dL Albumin/Globulin Ratio 1.2 (0.9-1.6) Lipase 88 (73-393) U/L Meds: Medications Generic Name Dose Route Start Last Admin Trade Name Freq PRN Reason Stop Dose Admin Sodium Chloride 10 ml 02/05/21 20:22 Sodium Chloride 0.9% 10 Ml Syringe FLUSH ASDIRECTED PRN Keep Vein Open Sodium Chloride 2.5 ml 02/05/21 20:22 Sodium Chloride 0.9% 2.5 Ml Syringe FLUSH ASDIRECTED PRN Keep Vein Open Discontinued Medications Generic Name Dose Route Start Last Admin Trade Name Freq PRN Reason Stop Dose Admin Dicyclomine HCl 20 mg 02/05/21 21:35 Dicyclomine 10 Mg Cap PO 02/05/21 21:36 ONETIME ONE Fentanyl 50 mcg 02/05/21 20:22 02/05/21 20:42 Fentanyl 50 Mcg/Ml Sdv IVPUSH 02/05/21 20:23 50 mcg ONETIME ONE Administration Fentanyl 50 mcg 02/05/21 21:35 Fentanyl 50 Mcg/Ml Sdv IVPUSH 02/05/21 21:36 ONETIME ONE Sodium Chloride 1,000 mls @ 999 mls/hr 02/05/21 20:22 02/05/21 20:41 Normal Saline IV 02/05/21 21:22 999 mls/hr .Bolus ONE Administration Ketorolac Tromethamine 30 mg 02/05/21 20:22 02/05/21 20:42 Ketorolac 30 Mg/Ml Sdv IVPUSH 02/05/21 20:23 30 mg ONETIME ONE Administration Ondansetron HCl 4 mg 02/05/21 20:22 02/05/21 20:42 Ondansetron 4 Mg/2 Ml Sdv IVPUSH 02/05/21 20:23 4 mg ONETIME ONE Administration Departure - Departure Time of Disposition: 21:47 Disposition: Home, Self-Care 01 Condition: Good Clinical Impression: Biliary dyskinesia, Abdominal pain - Discharge Information Instructions: Abdominal Pain, Adult, [id number], Biliary Dyskinesia Referrals: PCP,Not In Area [Primary Care Provider] - Additional Instructions: You were seen and evaluated in ER today secondary to pain to your right upper quadrant. Your presentation is highly consistent with likely biliary dyskinesis. You will benefit from follow-up with one of our general surgery doctors and possible HIDA scan to further evaluate your gallbladder. Please take medications to your doctors prescribed for you. I will add in another medicine which acts as an antispasmodic medicine which might help with the pain in your gallbladder. Please try to maintain an extremely low-fat diet, drink plenty of liquids and get plenty rest. The following information is given to patients seen in the emergency department who are being discharged to home. This information is to outline your options for follow-up care. We provide all patients seen in our emergency department with a follow-up referral. The need for follow-up, as well as the timing and circumstances, are variable depending upon the specifics of your emergency department visit. If you don't have a primary care physician on staff, we will provide you with a referral. We always advise you to contact your personal physician following an emergency department visit to inform them of the circumstance of the visit and for follow-up with them and/or the need for any referrals to a consulting specialist. The emergency department will also refer you to a specialist when appropriate. This referral assures that you have the opportunity for follow-up care with a specialist. All of these measure are taken in an effort to provide you with optimal care, which includes your follow-up. Under all circumstances we always encourage you to contact your private physician who remains a resource for coordinating your care. When calling for follow-up care, please make the office aware that this follow-up is from your recent emergency room visit. If for any reason you are refused follow-up, please contact the [facility] Emergency Department at and asked to speak to the emergency department charge nurse. [facility] - Primary Care [address] [place] [address] [facility] [address] [place] [address] Sepsis Event Note (ED) - Evaluation Sepsis Screening Result: No Definite Risk - Focused Exam Vital Signs: Vital Signs Temp Pulse Resp BP Pulse Ox 02/05/21 17:54 95.9 F L 73 18 135/77 98 - My Orders Last 24 Hours: My Active Orders 02/05/21 20:22 Sodium Chloride 0.9% [Saline Flush] 10 ml FLUSH ASDIRECTED PRN Sodium Chloride 0.9% [Saline Flush] 2.5 ml FLUSH ASDIRECTED PRN 02/05/21 20:24 Saline Lock Insert [OM.PC] Stat - Assessment/Plan Last 24 Hours: My Active Orders 02/05/21 20:22 Sodium Chloride 0.9% [Saline Flush] 10 ml FLUSH ASDIRECTED PRN Sodium Chloride 0.9% [Saline Flush] 2.5 ml FLUSH ASDIRECTED PRN 02/05/21 20:24 Saline Lock Insert [OM.PC] Stat
[2021-02-05 22:08] VITALS: BP 112/80; PULSE 72
== END 2021-02-05 22:08 | disposition home or self-care (01) ==
LOC: MW.ED 17:46
DX: K82.8 Other specified diseases of gallbladder (principal); Z88.5 Allergy status to narcotic agent; Z72.0 Tobacco use
CPT/HCPCS: 36415; 80053; 83690; 85025; 96374; 96375; 99284; A9270; J1885; J2405; J3010; J7030

== ENCOUNTER 2021-04-02 07:18 | Day surgery (SDC) | payer OTHER ==
[~2021-04-02 07:18] MED LIST: Pregabalin 75 MG Cap ONE
[2021-04-02] MEDS ORDERED: Ondansetron 4 MG/2 ML SDV IVPUSH PRN (07:31)
[2021-04-02] MEDS ORDERED: Naloxone 0.4 MG/ML SDV IVPUSH PRN (07:31)
[2021-04-02] MEDS ORDERED: HYDROmorphone 1 MG/ML Syringe IVPUSH PRN (07:31)
[2021-04-02] MEDS ORDERED: Albuterol 0.083% 2.5 MG/3 ML Neb Soln NEB PRN (07:31)
[2021-04-02] MEDS ORDERED: Morphine 2 MG/ML SYRINGE IVPUSH PRN (07:31)
[2021-04-02] MEDS ORDERED: Metoclopramide 10 MG/2 ML SDV IVPUSH PRN (07:31)
[2021-04-02] MEDS ORDERED: Scopolamine 1.5 MG Transdermal Patch ONE (07:34)
[2021-04-02] MEDS ORDERED: cefOXitin 2 GM in Premix Bag 1 BAG IV ONE (07:40)
[2021-04-02] MEDS ORDERED: Lactated Ringers 1,000 ML IV SCH (07:40)
[2021-04-02] MEDS ORDERED: Pregabalin 75 MG Cap PO ONE (07:40)
[2021-04-02] MEDS ORDERED: Acetaminophen 1,000 MG in Premix Bag 1 BAG IV ONE (07:40)
--- NOTE | 2021-04-02 07:41 | PCM.PREANE ---
Preanesthetic Assessment - Anesthesia/Transfusion/Family Hx Anesthesia History: No Prior Anesthesia Family History of Anesthesia Reaction: No Transfusion History: No Prior Transfusion(s) - Review of Systems General: No Symptoms Pulmonary: No Symptoms Cardiovascular: No Symptoms Gastrointestinal: Abdominal Pain Neurological: No Symptoms Other: Reports: None - Physical Assessment NPO Status Date: 04/02/21 NPO Status Time: 00:00 Vital Signs: Last Vital Signs Temp 97.5 F 04/02/21 07:30 Pulse 86 04/02/21 07:30 Resp 16 04/02/21 07:30 BP 112/79 04/02/21 07:30 Pulse Ox 97 04/02/21 07:30 Height: 5 ft 2 in Weight: 150 lb ASA Class: 2 Mental Status: Alert & Oriented x3 Airway Class: Mallampati = 1 Dentition: Reports: Normal Dentition Thyro-Mental Finger Breadths: 3 Mouth Opening Finger Breadths: 3 ROM/Head Extension: Full Lungs: Clear to Auscultation, Normal Respiratory Effort Cardiovascular: Regular Rate, Regular Rhythm - Allergies Allergies/Adverse Reactions: Allergies Allergy/AdvReac Type Severity Reaction Status Date / Time codeine Allergy Hives Verified 03/31/21 11:00 - Blood Blood Available: No - Anesthesia Plan Pre-Op Medication Ordered: Other (Scopolamine) - Acknowledgements Anesthesia Type Planned: General Anesthesia Pt an Appropriate Candidate for the Planned Anesthesia: Yes Alternatives and Risks of Anesthesia Discussed w Pt/Guardian: Yes Pt/Guardian Understands and Agrees with Anesthesia Plan: Yes PreAnesthesia Questionnaire - Past Health History Medical/Surgical History: Denies Medical/Surgical History HEENT History: Reports: Allergic Rhinitis Cardiovascular History: Reports: None Respiratory History: Reports: Asthma Gastrointestinal History: Reports: Other (See Below) Other Gastrointestinal History: intermittent RUQ pain Genitourinary History: Reports: None 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[employer] ARCHITECT History: Reports: Musculoskeletal History: Reports: Fracture Other Musculoskeletal History: hx fx tailbone Neurological History: Reports: Migraines Psychiatric History: Reports: Anxiety, Depression, PTSD, Other (See Below) Other Psychiatric History: borderline personality disorder Endocrine/Metabolic History: Reports: None Hematologic History: Reports: None Immunologic History: Reports: None Oncologic (Cancer) History: Reports: None Dermatologic History: Reports: Other (See Below) Other Dermatologic History: urticaria pigmentosa - Infectious Disease History Infectious Disease History: Reports: Chicken Pox, Shingles - Past Surgical History Head Surgeries/Procedures: Reports: None HEENT Surgical History: Reports: None Cardiovascular Surgical History: Reports: None Respiratory Surgical History: Reports: None GI Surgical History: Reports: None Female Surgical History: Reports: None Endocrine Surgical History: Reports: None Neurological Surgical History: Reports: None Musculoskeletal Surgical History: Reports: None Oncologic Surgical History: Reports: None - SUBSTANCE USE Tobacco Use Status *Q: Current Every Day Tobacco User Tobacco Use Within Last Twelve Months: Cigarettes Recreational Drug Type: Reports: Marijuana/Hashish Recreational Drug Last Use: over 1 week ago - HOME MEDS Home Medications: Home Meds Cetirizine [ZyrTEC] 1 tab PO DAILY 03/31/21 [History] - CURRENT (IN HOUSE) MEDS Current Meds: Current Medications Albuterol (Albuterol 0.083% 2.5 Mg/3 Ml Neb Soln) 2.5 mg NEB ONETIME PRN PRN Reason: Wheezing Droperidol (Droperidol 5 Mg/2 Ml Sdv) 0.625 mg IVPUSH ONETIME PRN PRN Reason: Nausea/Vomiting Fentanyl (Fentanyl 100 Mcg/2 Ml Sdv) 50 mcg IVPUSH Q5M PRN PRN Reason: Pain (mild 1-3) Hydromorphone HCl (Hydromorphone 1 Mg/Ml Syringe) 1 mg IVPUSH Q10M PRN PRN Reason: Pain (moderate 4-6) Lactated Ringer's (Ringers, Lactated) 1,000 mls @ 125 mls/hr IV ASDIRECTED KAR Cefoxitin Sodium 2 gm/ Premix 50 mls @ 100 mls/hr IV ONETIME ONE Stop: 04/02/21 09:32 Acetaminophen 1,000 mg/ Premix 100 mls @ 400 mls/hr IV ONCALL ONE Stop: 04/02/21 09:17 Metoclopramide HCl (Metoclopramide 10 Mg/2 Ml Sdv) 10 mg IVPUSH ONETIME PRN PRN Reason: Nausea/Vomiting Morphine Sulfate (Morphine 2 Mg/Ml Syringe) 2 mg IVPUSH Q10M PRN PRN Reason: Pain (severe 7-10) Naloxone HCl (Naloxone 0.4 Mg/Ml Sdv) 0.1 mg IVPUSH ASDIRECTED PRN PRN Reason: Respiratory Depression Ondansetron HCl (Ondansetron 4 Mg/2 Ml Sdv) 4 mg IVPUSH ONETIME PRN PRN Reason: Nausea/Vomiting Pregabalin (Pregabalin 75 Mg Cap) 150 mg PO ONETIME ONE Stop: 04/02/21 09:04 Discontinued Medications Acetaminophen (Ofirmev 1000 Mg/100 Ml) Confirm Administered Dose 100 mls @ as directed .ROUTE .STK-MED ONE Stop: 04/02/21 07:03 Pregabalin (Pregabalin 75 Mg Cap) Confirm Administered Dose 150 mg .ROUTE .STK- MED ONE Stop: 04/02/21 07:04 Last Admin: 04/02/21 07:35 Dose: 150 mg Documented by: Scopolamine (Scopolamine 1.5 Mg Transdermal Patch) Confirm Administered Dose 1.5 mg .ROUTE .STK-MED ONE Stop: 04/02/21 07:35
[2021-04-02] MEDS ORDERED: cefOXitin 1 GM Vial ONE ×2 (07:52→07:59)
[2021-04-02] MEDS ORDERED: Sugammadex Sodium 200 MG/2 ML VIAL ONE (07:52)
[2021-04-02] MEDS ORDERED: Rocuronium Bromide 50 MG/5 ML Syringe ONE (07:52)
[2021-04-02] MEDS ORDERED: Lidocaine 2% 5 ML SDV ONE (07:52)
[2021-04-02] MEDS ORDERED: fentaNYL 100 MCG/2 ML SDV ONE (07:53)
[2021-04-02] MEDS ORDERED: Propofol 200 MG/20 ML SDV ONE (07:53)
[2021-04-02] MEDS ORDERED: Midazolam 1 MG/ML 2 ML SDV ONE (08:27)
[2021-04-02] MEDS ORDERED: Octyl 2-Cyanoacrylate 1 Tube ONE (08:37)
[2021-04-02] MEDS ORDERED: Bupivacaine 25%/EPINEPHrine/PF 30 ML ONE (08:38)
[2021-04-02] MEDS ORDERED: Dexmedetomidine 200 MCG/2 ML SDV ONE (09:36)
[2021-04-02] MEDS ORDERED: Ketorolac 30 MG/ML SDV ONE (10:06)
--- NOTE | 2021-04-02 10:32 | PCM.POSTAN ---
POST ANESTHESIA ASSESSMENT - MENTAL STATUS Mental Status: Alert, Oriented - VITAL SIGNS Vital Signs: Last Vital Signs Temp 98.6 F 04/02/21 10:24 Pulse 92 04/02/21 10:30 Resp 22 H 04/02/21 10:30 BP 129/79 04/02/21 10:30 Pulse Ox 99 04/02/21 10:30 - RESPIRATORY Respiratory Status: Respiratory Rate WNL, Airway Patent, O2 Saturation Stable - CARDIOVASCULAR CV Status: Pulse Rate WNL, Blood Pressure Stable - GASTROINTESTINAL GI Status: No Symptoms - POST OP HYDRATION Hydration Status: Adequate & Stable
--- NOTE | 2021-04-02 10:34 | PCM48HPAN ---
Post Anesthesia Note - EVALUATION WITHIN 48HRS OF ANESTHETIC Vital Signs in Normal Range: Yes Patient Participated in Evaluation: Yes Respiratory Function Stable: Yes Airway Patent: Yes Cardiovascular Function Stable: Yes Hydration Status Stable: Yes Pain Control Satisfactory: Yes Nausea and Vomiting Control Satisfactory: Yes Mental Status Recovered: Yes Vital Signs: Last Vital Signs Temp 98.6 F 04/02/21 10:24 Pulse 92 04/02/21 10:30 Resp 22 H 04/02/21 10:30 BP 129/79 04/02/21 10:30 Pulse Ox 99 04/02/21 10:30
--- NOTE | 2021-04-02 10:37 | PCM.OPNOTE ---
- General Post-Op/Procedure Note Date of Surgery/Procedure: 04/02/21 Operative Procedure(s): Laparoscopic Cholecystectomy Findings: dictation number [id number] Pre Op Diagnosis: Biliary dyskinesia Post-Op Diagnosis: Biliary dyskinesia Primary Surgeon: Yimi Engel Pathology: gallbladder EBL in mLs: 10 Complications: None Condition: Good
[2021-04-02] MEDS: fentaNYL 100 MCG/2 ML SDV IVPUSH PRN ×2 (10:45→10:52)
[2021-04-02 12:04] VITALS: PULSE 77
[2021-04-02 12:12] VITALS: BP 116/72
--- NOTE | 2021-04-02 14:08 | OR ---
SURGEON: BECKY TORRES MD DATE OF PROCEDURE: 04/02/2021 PREOPERATIVE DIAGNOSIS: Biliary dyskinesia. POSTOPERATIVE DIAGNOSIS: Biliary dyskinesia. PROCEDURE PERFORMED: Laparoscopic cholecystectomy. PRIMARY SURGEON: Becky Torres MD ANESTHESIA: General. ESTIMATED BLOOD LOSS: 10 mL. COMPLICATIONS: None. SPECIMEN: Gallbladder. REASON FOR PROCEDURE: Patient is a pleasant 30-year-old female who has had issues with right upper quadrant pain for the last three to four years. She has had multiple CTs and ultrasounds, all have been unremarkable along with labs. She did have a HIDA scan which showed a low ejection fraction and she also had recurrence of her symptoms with the administration of CCK. I did discuss with the patient risks, goals, and alternatives to the surgery. Again, risks included, but were not limited to bleeding; infection; bile leak; injury to nearby structures, common bile duct or duodenum; need to convert to open; retained gallstones; and this could be something other than gallbladder causing her pain. Patient understands and wishes to proceed. OPERATIVE NARRATIVE: Patient was brought back to the OR. She was prepped and draped in usual sterile fashion. SCDs were placed. Preoperative antibiotics given and anesthesia provided by the Anesthesia team. Time-out was performed. An infraumbilical incision was made. This was made down to the fascia. Her abdomen was entered in an open Chandrika technique and a Chandrika trocar were placed. Insufflation was began. Now, three more 5 mm trocars were placed; one in the epigastric, one in the right upper quadrant, one in the right mid lower abdomen. The fundus of the gallbladder was grasped and elevated. Now, the infundibulum of the gallbladder was grasped and the critical view was carefully dissected out. I did get a very good critical view of the cystic duct and cystic artery. I did the cystic duct going to the gallbladder and had a good junction with the common bile duct seen on the green. Extra bolus did show light up of the cystic artery. These were both clipped and transected. The rest of the gallbladder was removed from the liver with Harmonic scalpel. No other tubular structures were encountered. The gallbladder was placed in an EndoCatch bag and removed. Insufflation was stopped and all the trocars were removed. The fascia of the infraumbilical incision was closed with looped [id number] 0 Vicryl. All the trocar sites were injected with remainder of the local and closed with 4-0 Monocryl and Dermabond. At the end of the case, sponge and needle count correct, and the patient was transferred to recovery room in stable condition. VIOLETTA HAWKINS /[id number]
== END 2021-04-02 12:11 | disposition home or self-care (01) ==
LOC: MW.SDS 07:18
PROVIDERS: ATTEND Surgery
DX: K81.1 Chronic cholecystitis (principal); K82.8 Other specified diseases of gallbladder; F17.210 Nicotine dependence, cigarettes, uncomplicated; Z79.899 Other long term (current) drug therapy; Z88.5 Allergy status to narcotic agent
CPT/HCPCS: 47562; 81025; 88304; A9270; J0131; J0694; J1170; J1885; J2250; J2704; J3010; J3490; J7120; 00790